=== PATIENT | male | born 1970 | race Caucasian/White ===

== ENCOUNTER 2020-02-27 00:17 | Observation (INO) | payer MEDICAID, OTHER ==
--- NOTE | 2020-02-27 00:33 | ERPHSYRPT ---
- History of Present Illness Source: patient Exam Limitations: no limitations Hx Tetanus, Diphtheria Vaccination/Date Given: No Hx Influenza Vaccination/Date Given: No Hx Pneumococcal Vaccination/Date Given: No <MU TAN - Last Filed: 02/27/20 02:44> <DESHAWN BHAKTA - Last Filed: 02/27/20 10:44> - History of Present Illness Time Seen by Provider: 02/27/20 00:32 Physician History: About 150 minutes ago at his daughter's residence pt started "flopping around" and was eventually brought to [facility] ER for evaluation. Pt's daughter stated he told her he used bath salts tonight. Pt has an appointment with Dr. Hand at 10 AM today and afterwards possible admission to [facility] in [place], [place], if they have a bed available today. Pt.s daughter denies pt having any vomiting or diarrhea tonight. (MU TAN) Allergies/Adverse Reactions: No Known Drug Allergies Allergy (Unverified 03/20/14 10:13) Home Medications: Mirtazapine 02/27/20 [History] Quetiapine Fumarate 02/27/20 [History] - Review of Systems All Other Systems: Unable due to condition (Altered Mental Status) <MU TAN - Last Filed: 02/27/20 02:44> - Past Medical History Pertinent Past Medical History: Yes Neurological History: No Pertinent History ENT History: No Pertinent History Cardiac History: No Pertinent History Respiratory History: No Pertinent History Endocrine Medical History: No Pertinent History Musculoskeletal History: No Pertinent History GI Medical History: No Pertinent History History: No Pertinent History Psycho-Social History: Other (as noted substance abuse) Male Reproductive Disorders: No Pertinent History Other Medical History: SLEEP DISORDER - Past Surgical History Past Surgical History: No Other Surgical History: unknown, pt unable to answer - Social History Smoking Status: Current every day smoker How long have you smoked: 15 Exposure to second hand smoke: No Alcohol Use: Chronic Drug Use: none, methamphetamines Patient Lives Alone: No Significant Family History: no pertinent family hx <MU TAN - Last Filed: 02/27/20 02:44> - Physical Exam General Appearance: anxiety Eye Exam: bilateral eye: PERRL Ears, Nose, Throat Exam: moist mucous membranes Neck Exam: normal inspection Respiratory: lungs clear Cardiovascular: normal heart sounds Gastrointestinal: normal bowel sounds Back Exam: normal inspection Extremity Exam: No pedal edema Peripheral Pulses: dorsalis-pedis (R): 2+, dorsalis-pedis (L): 2+ 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, 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, 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 Motor/Sensory: no motor deficit Skin Exam: warm, dry SpO2 Interpretation: normal SpO2: 98 O2 Delivery: Room Air <MU TAN - Last Filed: 02/27/20 02:44> - Nursing Vital Signs Nursing Vital Signs: Initial Vital Signs Temperature 96.7 F 02/27/20 00:19 Pulse Rate 127 H 02/27/20 00:19 Respiratory Rate 20 02/27/20 00:19 Blood Pressure 106/83 02/27/20 00:19 O2 Sat by Pulse Oximetry 98 02/27/20 00:19 Pain Scale Pain Intensity 0 Ordered Tests: Active Orders 24 hr Category Date Time Status Cath for Specimen-Straight STAT Care 02/27/20 00:34 Active CHEST 1 VIEW (PORTABLE) Stat Exams 02/27/20 04:03 Ordered HEAD WITHOUT CONTRAST [CT] Stat Exams 02/27/20 04:01 Ordered ACETAMINOPHEN Stat Lab 02/27/20 00:37 Completed BMP Stat Lab 02/27/20 04:20 Completed BMP Urgent Lab 02/27/20 08:25 Completed CBC W DIFF Stat Lab 02/27/20 00:37 Completed CMP Stat Lab 02/27/20 00:37 Completed CULTURE,URINE Stat Lab 02/27/20 00:37 Received ETHYL ALCOHOL Stat Lab 02/27/20 00:37 Completed ETHYL ALCOHOL Stat Lab 02/27/20 04:20 Completed MAGNESIUM Stat Lab 02/27/20 04:20 Completed Manual Differential NC Stat Lab 02/27/20 00:37 Completed SALICYLATE Stat Lab 02/27/20 00:37 Completed TROPONIN Q3H Lab 02/27/20 04:20 Completed TROPONIN Q3H Lab 02/27/20 08:25 Completed TROPONIN Q3H Lab 02/27/20 10:15 Ordered TROPONIN Q3H Lab 02/27/20 13:15 Ordered TROPONIN Q3H Lab 02/27/20 16:15 Ordered UA W/RFX UR CULTURE Stat Lab 02/27/20 00:37 Completed Urine Triage Profile Stat Lab 02/27/20 00:37 Completed Transfer Order Routine Transfer 02/27/20 Ordered Medication Summary Generic Name Dose Route Start Last Admin Trade Name Freq PRN Reason Stop Dose Admin Midazolam HCl 50 mg/ Sodium 250 mls @ 20 mls/hr 02/27/20 08:16 02/27/20 09:55 Chloride IV 03/28/20 08:15 8 mg/hr .[id number] PRN 40 mls/hr SEDATION Titration Protocol 4 MG/HR Sodium Chloride 1,000 mls @ 150 mls/hr 02/27/20 10:15 02/27/20 10:11 Sodium Chloride 0.9% 1000 Ml IV 03/28/20 10:14 150 mls/hr .[id number] LINDSEY Administration Haloperidol Lactate 5 mg/ 51 mls @ 100 mls/hr 02/27/20 10:22 02/27/20 10:40 Sodium Chloride IV 02/27/20 10:52 100 mls/hr STAT ONE Administration Discontinued Medications Generic Name Dose Route Start Last Admin Trade Name Juan PRN Reason Stop Dose Admin Chlorpromazine HCl 50 mg 02/27/20 00:45 02/27/20 00:38 Thorazine 50 Mg IM 02/27/20 00:46 50 mg ONCE ONE Administration Chlorpromazine HCl Confirm 02/27/20 00:34 Thorazine 50 Mg Administered 02/27/20 00:35 Dose 50 mg .ROUTE .STK-MED ONE Chlorpromazine HCl 50 mg 02/27/20 01:41 02/27/20 01:44 Thorazine 50 Mg IM 02/27/20 01:42 50 mg ONCE ONE Administration Chlorpromazine HCl Confirm 02/27/20 01:42 Thorazine 50 Mg Administered 02/27/20 01:43 Dose 50 mg .ROUTE .STK-MED ONE Sodium Chloride 1,000 mls @ 999 mls/hr 02/27/20 07:13 02/27/20 08:36 Sodium Chloride 0.9% 1000 Ml IV 02/27/20 08:13 Infused .Q1H1M STA Infusion Sodium Chloride Confirm 02/27/20 07:13 Sodium Chloride 0.9% 1000 Ml Administered 02/27/20 07:14 Dose 1,000 mls @ ud .ROUTE .STK-MED ONE Haloperidol Lactate 5 mg/ 51 mls @ 100 mls/hr 02/27/20 07:32 02/27/20 07:42 Sodium Chloride IV 02/27/20 08:02 100 mls/hr STAT ONE Administration Lorazepam 2 mg 02/27/20 00:53 02/27/20 01:09 Ativan 2 Mg/1 Ml Vial IV 02/27/20 00:54 2 mg STAT ONE Administration Lorazepam Confirm 02/27/20 01:07 Ativan 2 Mg/1 Ml Vial Administered 02/27/20 01:08 Dose 2 mg .ROUTE .STK-MED ONE Lorazepam 2 mg 02/27/20 04:00 02/27/20 04:14 Ativan 2 Mg/1 Ml Vial IV 02/27/20 04:01 2 mg STAT ONE Administration Lorazepam Confirm 02/27/20 04:11 Ativan 2 Mg/1 Ml Vial Administered 02/27/20 04:12 Dose 2 mg .ROUTE .STK-MED ONE Lorazepam 2 mg 02/27/20 07:11 02/27/20 07:14 Ativan 2 Mg/1 Ml Vial IV 02/27/20 07:12 2 mg STAT ONE Administration Lorazepam Confirm 02/27/20 07:12 Ativan 2 Mg/1 Ml Vial Administered 02/27/20 07:13 Dose 2 mg .ROUTE .STK-MED ONE Lorazepam 2 mg 02/27/20 07:59 02/27/20 08:03 Ativan 2 Mg/1 Ml Vial IV 02/27/20 08:00 2 mg STAT ONE Administration Lorazepam Confirm 02/27/20 08:00 Ativan 2 Mg/1 Ml Vial Administered 02/27/20 08:01 Dose 2 mg .ROUTE .STK-MED ONE Lab/Rad Data: Laboratory Result Diagrams 02/27/20 00:37 02/27/20 08:25 Laboratory Results 02/27/20 02/27/20 02/27/20 Range/Units 08:25 04:20 04:20 WBC (4.0-10.5) K/mm3 RBC (4.1-5.6) M/mm3 Hgb (12.5-18.0) gm/dl Hct (42-50) % MCV (78-100) fl MCH (26-32) pg MCHC (32-36) g/dl RDW (11.5-14.0) % Plt Count (150-450) K/mm3 MPV (7.5-11.0) fl Absolute Granulocytes (1.4-6.9) Segmented Neutrophils (36.-66.) % Lymphocytes (Manual) (24-44) % Monocytes (Manual) (0.0-12.0) % Eosinophils (Manual) (0.00-3.0) % Platelet Estimate (NORMAL) RBC Morphology Sodium 142 143 (137-145) mmol/L Potassium 3.9 3.4 L (3.5-5.1) mmol/L Chloride 114 H 109 H (98-107) mmol/L Carbon Dioxide 22 23 (22-30) mmol/L Anion Gap 9.9 15.1 H (5-15) MEQ/L BUN 10 8 L (9-20) mg/dL Creatinine 0.79 0.86 (0.66-1.25) mg/dL Estimated GFR > 60.0 > 60.0 ML/MIN Glucose 118 H 140 H (74-106) mg/dL Calcium 8.6 9.3 (8.4-10.2) mg/dL Magnesium 2.1 (1.6-2.3) mg/dL Total Bilirubin (0.2-1.3) mg/dL AST (17-59) U/L ALT (0-50) U/L Alkaline Phosphatase (38-126) U/L Troponin I 0.017 < 0.012 (0.000-0.034) ng/mL Serum Total Protein (6.3-8.2) g/dL Albumin (3.5-5.0) g/dL Urine Color (YELLOW) Urine Appearance (CLEAR) Urine pH (5-6) Ur Specific Edmonds (1.005-1.025) Urine Protein (Negative) Urine Ketones (NEGATIVE) Urine Blood (0-5) Ashwin/ul Urine Nitrite (NEGATIVE) Urine Bilirubin (NEGATIVE) Urine Urobilinogen (0-1) mg/dL Ur Leukocyte Esterase (NEGATIVE) Urine WBC (Auto) (0-5) /HPF Urine RBC (Auto) (0-2) /HPF U Epithel Cells (Auto) (FEW) /HPF Urine Bacteria (Auto) (NEGATIVE) /HPF Urine Culture Reflexed (NO) Urine Glucose (NEGATIVE) mg/dL Salicylates (2-20) mg/dL Urine Opiates Level (NEGATIVE) Ur Methadone (NEGATIVE) Acetaminophen (10-30) ug/ml Urine Barbiturates (NEGATIVE) Ur Phencyclidine (PCP) (NEGATIVE) Urine Amphetamine (NEGATIVE) U Benzodiazepine Level (NEGATIVE) Urine Cocaine (NEGATIVE) Urine Marijuana (THC) (NEGATIVE) Ethyl Alcohol 69 H (0-10) mg/dL 02/27/20 02/27/20 02/27/20 Range/Units 00:37 00:37 00:37 WBC 12.4 H (4.0-10.5) K/mm3 RBC 5.58 (4.1-5.6) M/mm3 Hgb 16.3 (12.5-18.0) gm/dl Hct 48.5 (42-50) % MCV 86.9 (78-100) fl MCH 29.2 (26-32) pg MCHC 33.6 (32-36) g/dl RDW 13.0 (11.5-14.0) % Plt Count 401 (150-450) K/mm3 MPV 9.4 (7.5-11.0) fl Absolute Granulocytes 5.76 (1.4-6.9) Segmented Neutrophils 54 (36.-66.) % Lymphocytes (Manual) 38 (24-44) % Monocytes (Manual) 7 (0.0-12.0) % Eosinophils (Manual) 1 (0.00-3.0) % Platelet Estimate NORMAL (NORMAL) RBC Morphology NORMAL Sodium 141 (137-145) mmol/L Potassium 3.4 L (3.5-5.1) mmol/L Chloride 109 H (98-107) mmol/L Carbon Dioxide 23 (22-30) mmol/L Anion Gap 13.2 (5-15) MEQ/L BUN 6 L (9-20) mg/dL Creatinine 0.85 (0.66-1.25) mg/dL Estimated GFR > 60.0 ML/MIN Glucose 122 H (74-106) mg/dL Calcium 9.2 (8.4-10.2) mg/dL Magnesium (1.6-2.3) mg/dL Total Bilirubin 0.30 (0.2-1.3) mg/dL AST 54 (17-59) U/L ALT 73 H (0-50) U/L Alkaline Phosphatase 85 (38-126) U/L Troponin I (0.000-0.034) ng/mL Serum Total Protein 7.9 (6.3-8.2) g/dL Albumin 4.5 (3.5-5.0) g/dL Urine Color (YELLOW) Urine Appearance (CLEAR) Urine pH (5-6) Ur Specific Edmonds (1.005-1.025) Urine Protein (Negative) Urine Ketones (NEGATIVE) Urine Blood (0-5) Ashwin/ul Urine Nitrite (NEGATIVE) Urine Bilirubin (NEGATIVE) Urine Urobilinogen (0-1) mg/dL Ur Leukocyte Esterase (NEGATIVE) Urine WBC (Auto) (0-5) /HPF Urine RBC (Auto) (0-2) /HPF U Epithel Cells (Auto) (FEW) /HPF Urine Bacteria (Auto) (NEGATIVE) /HPF Urine Culture Reflexed (NO) Urine Glucose (NEGATIVE) mg/dL Salicylates < 1.0 L (2-20) mg/dL Urine Opiates Level NEGATIVE (NEGATIVE) Ur Methadone NEGATIVE (NEGATIVE) Acetaminophen < 10 L (10-30) ug/ml Urine Barbiturates NEGATIVE (NEGATIVE) Ur Phencyclidine (PCP) NEGATIVE (NEGATIVE) Urine Amphetamine POSITIVE (NEGATIVE) U Benzodiazepine Level NEGATIVE (NEGATIVE) Urine Cocaine NEGATIVE (NEGATIVE) Urine Marijuana (THC) NEGATIVE (NEGATIVE) Ethyl Alcohol 157 H (0-10) mg/dL 02/26/ Range/Units 00:37 WBC (4.0-10.5) K/mm3 RBC (4.1-5.6) M/mm3 Hgb (12.5-18.0) gm/dl Hct (42-50) % MCV (78-100) fl MCH (26-32) pg MCHC (32-36) g/dl RDW (11.5-14.0) % Plt Count (150-450) K/mm3 MPV (7.5-11.0) fl Absolute Granulocytes (1.4-6.9) Segmented Neutrophils (36.-66.) % Lymphocytes (Manual) (24-44) % Monocytes (Manual) (0.0-12.0) % Eosinophils (Manual) (0.00-3.0) % Platelet Estimate (NORMAL) RBC Morphology Sodium (137-145) mmol/L Potassium (3.5-5.1) mmol/L Chloride (98-107) mmol/L Carbon Dioxide (22-30) mmol/L Anion Gap (5-15) MEQ/L BUN (9-20) mg/dL Creatinine (0.66-1.25) mg/dL Estimated GFR ML/MIN Glucose (74-106) mg/dL Calcium (8.4-10.2) mg/dL Magnesium (1.6-2.3) mg/dL Total Bilirubin (0.2-1.3) mg/dL AST (17-59) U/L ALT (0-50) U/L Alkaline Phosphatase (38-126) U/L Troponin I (0.000-0.034) ng/mL Serum Total Protein (6.3-8.2) g/dL Albumin (3.5-5.0) g/dL Urine Color YELLOW (YELLOW) Urine Appearance CLEAR (CLEAR) Urine pH 7.0 (5-6) Ur Specific Edmonds 1.005 (1.005-1.025) Urine Protein NEGATIVE (Negative) Urine Ketones NEGATIVE (NEGATIVE) Urine Blood NEGATIVE (0-5) Ashwin/ul Urine Nitrite NEGATIVE (NEGATIVE) Urine Bilirubin NEGATIVE (NEGATIVE) Urine Urobilinogen NEGATIVE (0-1) mg/dL Ur Leukocyte Esterase NEGATIVE (NEGATIVE) Urine WBC (Auto) NONE (0-5) /HPF Urine RBC (Auto) NONE (0-2) /HPF U Epithel Cells (Auto) NONE (FEW) /HPF Urine Bacteria (Auto) NONE (NEGATIVE) /HPF Urine Culture Reflexed ORDERED SEPARATELY (NO) Urine Glucose NEGATIVE (NEGATIVE) mg/dL Salicylates (2-20) mg/dL Urine Opiates Level (NEGATIVE) Ur Methadone (NEGATIVE) Acetaminophen (10-30) ug/ml Urine Barbiturates (NEGATIVE) Ur Phencyclidine (PCP) (NEGATIVE) Urine Amphetamine (NEGATIVE) U Benzodiazepine Level (NEGATIVE) Urine Cocaine (NEGATIVE) Urine Marijuana (THC) (NEGATIVE) Ethyl Alcohol (0-10) mg/dL - Progress Progress: improved, re-examined Counseled pt/family regarding: lab results, diagnosis <DESHAWN BHAKTA - Last Filed: 02/27/20 10:44> - Progress Progress Note: 02/27/20 07:50 Medical decision making: I accepted this patient at the time of shift change from Dr. Tan. Patient has been here approximately 6-1/2 hours prior to my arrival. There were no IV fluids running. Patient continues to have agitation on my initial examination of him. Patient will need admission into hospital and medical clearance prior to discharge from the emergency department. We will attempt to find a inpatient psychiatric facility for him. He may need intensive care unit observation in this facility. At this point, I will give patient another dose of Ativan and start a Haldol drip. I discussed treatment options with pharmacy and we opted for the Haldol drip first. Patient may need to be on a Versed drip and possible even a propofol drip. We will obtain an emergency skilled nursing at the appropriate time. We will continue his restraints. We will start him on IV fluids. 02/27/20 10:31 Medical decision making update: Patient's agitation is slowly improving. I spoke with Dr. Hand. I reviewed the patient history, condition, laboratory results. He is aware that the patient is on a Versed drip and has required Haldol, Ativan and 4 extremity restraints. Patient is not medically stable to be transferred to an inpatient psychiatric facility at this point in time. Therefore he will be admitted to intensive care unit. Dr. Hand accepts him for admission 02/27/20 10:33 The patient's agitation is slowly resolving/improving. We will make another attempt to perform a CAT scan of his head in the emergency department. I am convinced his agitation is secondary to bath salts intoxication. So, if we cannot obtain the CAT scan of his head in the emergency department, he will have 1 performed once he is in the intensive care unit. (DESHAWN BHAKTA) <MU TAN - Last Filed: 02/27/20 02:44> - Departure Departure Disposition: In-patient Admission Critical Care Time: Yes Critical Care Time(excluding separately billable procedures): Critical 75-104 mins <DESHAWN BHAKTA - Last Filed: 02/27/20 10:44> - Departure Clinical Impression: Altered mental status, Alcohol intoxication, Bath salt overdose, UDS + for amphetamines Condition: Fair Referrals: AUDELIA STARK [Primary Care Provider] -
[2020-02-27] MEDS ORDERED: THORAZINE 50 MG ONE ×2 (00:34→01:42)
[2020-02-27] MEDS ORDERED: THORAZINE 50 MG IM ONE ×2 (00:45→01:41)
[2020-02-27 00:47] LABS: Absolute Neutrophil Ct (ANC) 5.76 (1.4-6.9); Hematocrit 48.5 % (42-50); Hemoglobin 16.3 gm/dl (12.5-18.0); Mean Cell Volume 86.9 fl (78-100); Mean Corpuscular Hemoglobin 29.2 pg (26-32); Mean Corpuscular Hgb Concent. 33.6 g/dl (32-36); Mean Platelet Volume 9.4 fl (7.5-11.0); Platelet Count 401 K/mm3 (150-450); Red Blood Count 5.58 M/mm3 (4.1-5.6); White Blood Count 12.4 K/mm3 (4.0-10.5)
[2020-02-27] MEDS ORDERED: Ativan 2 MG/1 ML VIAL IV ONE ×4 (00:53→07:59)
[2020-02-27 00:56] LABS: Appearance CLEAR (CLEAR); Bilirubin NEGATIVE (NEGATIVE); Blood NEGATIVE Ery/ul (0-5); Glucose NEGATIVE (NEGATIVE); Ketones NEGATIVE (NEGATIVE); Leukocyte Esterase NEGATIVE (NEGATIVE); Nitrite NEGATIVE (NEGATIVE); Protein,Urine Dip NEGATIVE (Negative); Specific Gravity 1.005 (1.005-1.025); Urobilinogen NEGATIVE mg/dL (0-1)
[2020-02-27 00:57] LABS: ALBUMIN 4.5 g/dL (3.5-5.0); ALKALINE PHOSPHATASE 85 U/L (38-126); ANION GAP 13.2 MEQ/L (5-15); BLOOD UREA NITROGEN 6 mg/dL (9-20); CHLORIDE 109 mmol/L (98-107); Calcium 9.2 mg/dL (8.4-10.2); Carbon Dioxide 23 mmol/L (22-30); Creatinine 1 0.85 mg/dL (0.66-1.25); EST GLOMERULAR FILTRATION RATE > 60.0 ML/MIN; ETHYL ALCOHOL 157 mg/dL (0-10); Glucose 122 mg/dL (74-106); Potassium 3.4 mmol/L (3.5-5.1); SGOT/AST 54 U/L (17-59); SGPT/ALT 73 U/L (0-50); SODIUM 141 mmol/L (137-145); Total Protein 7.9 g/dL (6.3-8.2)
[2020-02-27 01:04] LABS: Amphetamine,Urine POSITIVE (NEGATIVE); Barbiturate,Urine NEGATIVE (NEGATIVE); Benzodiazepine,Urine NEGATIVE (NEGATIVE); Cocaine,Urine NEGATIVE (NEGATIVE); Methadone,Urine NEGATIVE (NEGATIVE); Opiate,Urine NEGATIVE (NEGATIVE); PCP,Urine NEGATIVE (NEGATIVE); THC,Urine NEGATIVE (NEGATIVE)
[2020-02-27] MEDS ORDERED: Ativan 2 MG/1 ML VIAL ONE ×4 (01:07→08:00)
[2020-02-27 01:29] LABS: ACETAMINOPHEN < 10 ug/ml (10-30); SALICYLATE < 1.0 mg/dL (2-20)
[2020-02-27 04:09] LABS: Eosinophil 1 % (0.00-3.0); Lymphocytes 38 % (24-44); Monocyte 7 % (0.0-12.0); Neutrophils 54 % (36.-66.); Platelet Estimate NORMAL (NORMAL); Total Cells Counted 100
[2020-02-27 04:50] LABS: ANION GAP 15.1 MEQ/L (5-15); BLOOD UREA NITROGEN 8 mg/dL (9-20); CHLORIDE 109 mmol/L (98-107); Calcium 9.3 mg/dL (8.4-10.2); Carbon Dioxide 23 mmol/L (22-30); Creatinine 1 0.86 mg/dL (0.66-1.25); EST GLOMERULAR FILTRATION RATE > 60.0 ML/MIN; ETHYL ALCOHOL 69 mg/dL (0-10); Glucose 140 mg/dL (74-106); MAGNESIUM 2.1 mg/dL (1.6-2.3); Potassium 3.4 mmol/L (3.5-5.1); SODIUM 143 mmol/L (137-145)
[2020-02-27] MEDS ORDERED: Sodium Chloride 0.9% 1000 ML 1,000 ML ONE (07:13)
[2020-02-27] MEDS ORDERED: Sodium Chloride 0.9% 1000 ML 1,000 ML IV STA (07:13)
[2020-02-27] MEDS ORDERED: SODIUM CHLORIDE 0.9% IV ONE ×2 (07:32→10:22)
[2020-02-27] MEDS ORDERED: HALDOL IV ONE ×2 (07:32→10:22)
[2020-02-27] MEDS: Versed 50 MG/ 10 Ml MDV*** 50 MG in Sodium Chloride 0.9% 250 ML 240 ML IV PRN ×2 (08:38→15:45)
[2020-02-27 08:49] LABS: BLOOD UREA NITROGEN 10 mg/dL (9-20); CHLORIDE 114 mmol/L (98-107); Calcium 8.6 mg/dL (8.4-10.2); Carbon Dioxide 22 mmol/L (22-30); Creatinine 1 0.79 mg/dL (0.66-1.25); EST GLOMERULAR FILTRATION RATE > 60.0 ML/MIN; Glucose 118 mg/dL (74-106); Potassium 3.9 mmol/L (3.5-5.1); SODIUM 142 mmol/L (137-145)
[2020-02-27 08:51] LABS: ANION GAP 9.9 MEQ/L (5-15)
[2020-02-27 08:56] LABS: TROPONIN 0.017 ng/mL (0.000-0.034)
[2020-02-27] MEDS ORDERED: Sodium Chloride 0.9% 1000 ML 1,000 ML IV SCH ×2 (10:15→15:58)
[2020-02-27] MEDS ORDERED: Erythromycin 1 GM ONE (11:25)
[2020-02-27] MEDS ORDERED: Erythromycin 3.5 GM OPHTH. OP ONE (11:25)
[2020-02-27] MEDS ORDERED: Erythromycin 1 GM OP STA (11:26)
--- NOTE | 2020-02-27 13:32 | XRAY ---
Indication: Altered mental status. Multiple contiguous axial images obtained through the head without contrast. Comparison: March 20, 2014. Normal appearing brain parenchyma, ventricles, and bony calvarium. There is now moderate mucosal thickening of both ethmoid and lesser degree left maxillary sinus without fluid leveling. Mastoid air cells are clear. Impression: New paranasal sinus disease. Remaining CT head without contrast exam is normal.
--- NOTE | 2020-02-27 13:38 | XRAY ---
Indication: Altered mental status. Comparison: June 21, 2007. Portable chest again demonstrates normal heart, lungs, and bony thorax with a few incidental tiny calcified granulomas.
[2020-02-27 14:16] VITALS: PULSE 95
[2020-02-27 15:08] VITALS: BP 138/82; O2SAT 97
[2020-02-27] MEDS ORDERED: FEVERALL 650 MG PR PRN (15:58)
[2020-02-27] MEDS ORDERED: Zofran 4 MG/2 ML VIAL IV PRN (15:58)
[2020-02-27 16:07] LABS: A-aADO2 557; ABG HEMOGLOBIN 14.9; ABG POTASSIUM 3.6 (3.5-5.1); ABG SITE LEFT BRACHIAL; ARTERIAL BLD GAS O2 SATURATION 99.1 % (95-100); ARTERIAL BLOOD GAS BASE EXCESS -0.2 (-2.0-2.0); ARTERIAL BLOOD GAS FIO2 100 %; ARTERIAL BLOOD GAS PCO2 41 mmHg (35-45); ARTERIAL BLOOD GAS PO2 105 mmHg (75-100); ARTERIAL BLOOD GAS pH 7.39 (7.35-7.45); CARBOXYHEMOGLOBIN 1.3 % THgb (0.0-6.9); HCO3- 24.8 (22-28); Methhemoglobin 0.8 % (1.4-1.5); paO2 pAO1 0.16
[2020-02-27] MEDS ORDERED: Zemuron 100 MG/10 ML IV ONE (17:00)
[2020-02-27 17:52] LABS: ANION GAP 6.1 MEQ/L (5-15); BLOOD UREA NITROGEN 9 mg/dL (9-20); CHLORIDE 113 mmol/L (98-107); Calcium 8.3 mg/dL (8.4-10.2); Carbon Dioxide 25 mmol/L (22-30); Creatinine 1 0.69 mg/dL (0.66-1.25); EST GLOMERULAR FILTRATION RATE > 60.0 ML/MIN; Glucose 136 mg/dL (74-106); Potassium 3.7 mmol/L (3.5-5.1); SODIUM 140 mmol/L (137-145)
[2020-02-27 17:53] LABS: TROPONIN < 0.012 ng/mL (0.000-0.034)
--- NOTE | 2020-02-27 18:56 | XRAY ---
Indication: Endotracheal tube and NG tube placement. Comparison: Taken earlier in the day. Portable chest demonstrates new endotracheal tube tip 6 cm above kiko and new NG tube traversing chest with tip presumed in stomach. Remaining chest unchanged. No new/acute cardiopulmonary abnormalities.
[2020-02-28] MEDS ORDERED: Pepcid 20 MG VIAL IV SCH (10:00)
--- NOTE | 2020-02-28 12:19 | PCM.SSS ---
History of Present Illness - Chief Complaint Chief Complaint: Bath salts intoxication History of Present Illness: is a 49 year old male.About 150 minutes ago at his daughter's residence pt started "flopping around" and was eventually brought to [facility] ER for evaluation. Pt's daughter stated he told her he used bath salts tonight. Pt has an appointment with Dr. Driscoll at 10 AM today and afterwards possible admission to [facility] in [facility] [place], if they have a bed a vailable today. Pt.s daughter denies pt having any vomiting or diarrhea tonight. - Review of Systems All Other Systems: Unable due to condition Medications & Allergies Home Medications: Home Medication List Mirtazapine 02/27/20 [History] Quetiapine Fumarate 02/27/20 [History] Allergies/Adverse Reactions: Allergies Allergy/AdvReac Type Severity Reaction Status Date / Time No Known Drug Allergies Allergy Unverified 03/20/14 10:13 - Past Medical History Past Medical History: Yes Neurological History: No Pertinent History ENT History: No Pertinent History Cardiac History: No Pertinent History Respiratory History: No Pertinent History Endocrine Medical History: No Pertinent History Musculoskelatal History: No Pertinent History GI Medical History: No Pertinent History History: No Pertinent History Pyscho-Social History: Other Male Reproductive Disorders: No Pertinent History Comment: SLEEP DISORDER. Multi-drug abuse - Past Surgical History Past Surgical History: No Other Surgical History: unknown, pt unable to answer - Social History Smoking Status: Unknown if ever smoked How long have you smoked: 15 Exposure to second hand smoke: No Alcohol: Heavy Drug Use: bath salts, methamphetamines Significant Family History: no pertinent family hx - Physical Exam Vital Signs: Vital Signs - 24 hr Temp Pulse Resp BP Pulse Ox 02/27/20 17:11 97.4 F 95 H 26 H 138/82 97 02/27/20 15:07 95 H 26 H 138/82 97 02/27/20 14:06 95 H 27 H 140/80 100 02/27/20 13:06 102 H 33 H 136/76 99 General Appearance: moderate distress Neurologic Exam: disoriented, confusion, agitation Eye Exam: post op pupil defect (L), post op pupil defect (R) Ears, Nose, Throat Exam: normal ENT inspection Neck Exam: normal inspection Respiratory Exam: normal breath sounds Cardiovascular Exam: tachycardia Gastrointestinal/Abdomen Exam: soft Skin Exam: dry Results - Labs Lab/Micro Results: Lab Results-Last 24 Hours 02/27/20 02/27/20 02/27/20 Range/Units 15:11 16:04 16:51 Puncture Site LEFT BRACHIAL pCO2 41 (35-45) mmHg pO2 105 H (75-100) mmHg Base Excess -0.2 (-2.0-2.0) O2 Saturation 97.0 (94-100) g/dF ABG pH 7.39 (7.35-7.45) ABG HCO3 24.8 (22-28) ABG O2 Sat (Measured) 99.1 (95-100) % Beni Test NOT APPLICABLE A-a Gradient 557 a/A Ratio 0.16 Hemoglobin 14.9 Carboxyhemoglobin 1.3 (0.0-6.9) % THgb Methemoglobin 0.8 L (1.4-1.5) % Potassium 3.6 3.7 (3.5-5.1) Temperature 37.0 C POC O2 Flow Rate 100 % Sodium 140 (137-145) mmol/L Chloride 113 H (98-107) mmol/L Carbon Dioxide 25 (22-30) mmol/L Anion Gap 6.1 (5-15) MEQ/L BUN 9 (9-20) mg/dL Creatinine 0.69 (0.66-1.25) mg/dL Estimated GFR > 60.0 ML/MIN Glucose 136 H (74-106) mg/dL Calcium 8.3 L (8.4-10.2) mg/dL Troponin I < 0.012 < 0.012 (0.000-0.034) ng/mL Microbiology 02/27/20 00:37 Urine Culture - Final Catherized NO GROWTH - Radiology Impressions Radiology Exams & Impressions: Radiology Procedures Category Date Time Status CHEST 1 VIEW (PORTABLE) Stat Exams 02/27/20 04:03 Completed CHEST 1 VIEW (PORTABLE) Stat Exams 02/27/20 17:02 Completed HEAD WITHOUT CONTRAST [CT] Stat Exams 02/27/20 04:[address]/HEAD WITHOUT CONTRAST Indication: Altered mental status. Multiple contiguous axial images obtained through the head without contrast. Comparison: March 20, 2014. Normal appearing brain parenchyma, ventricles, and bony calvarium. There is now moderate mucosal thickening of both ethmoid and lesser degree left maxillary sinus without fluid leveling. Mastoid air cells are clear. Impression: New paranasal sinus disease. Remaining CT head without contrast exam is normal. - Other Procedures and Tests Respiratory Therapy 02/27/20 17:15 Intubation [Ventilator Management] STAT Assessment/Plan (1) Status epilepticus, generalized convulsive Status: Acute Code(s): G40.901 - EPILEPSY, UNSP, NOT INTRACTABLE, WITH STATUS EPILEPTICUS (2) Respiratory arrest Status: Acute Code(s): R09.2 - RESPIRATORY ARREST (3) Bath salt overdose Status: Acute Qualifiers: Encounter type: initial encounter Code(s): T43.601A - POISONING BY UNSP PSYCHOSTIM, ACCIDENTAL, INIT Hospital Summary - Hospital Course Hospital Course: Chief Complaint Diagnosis Bath salts intoxication Allergies Allergy/AdvReac Type Severity Reaction Status Date / Time No Known Drug Allergies Allergy Unverified 03/20/14 10:13 Vital Signs (Last 24 hours) Temp Pulse Resp BP Pulse Ox 02/27/20 17:11 97.4 F 95 H 26 H 138/82 97 02/27/20 15:07 95 H 26 H 138/82 97 02/27/20 14:06 95 H 27 H 140/80 100 02/27/20 13:06 102 H 33 H 136/76 99 Home Medications Medication Instructions Recorded Confirmed Last Taken Type Mirtazapine 02/27/20 02/26/20 22:00 History Quetiapine Fumarate 02/27/20 02/26/20 22:00 History Current Medications Discontinued Medications Generic Name Dose Route Start Last Admin Trade Name Freq PRN Reason Stop Dose Admin Acetaminophen 650 mg 02/27/20 15:58 Feverall 650 Mg IN 03/28/20 15:57 Q4H PRN PRN PAIN AND/OR FEVER Chlorpromazine HCl 50 mg 02/27/20 00:45 02/27/20 00:38 Thorazine 50 Mg IM 02/27/20 00:46 50 mg ONCE ONE Administration Chlorpromazine HCl Confirm 02/27/20 00:34 Thorazine 50 Mg Administered 02/27/20 00:35 Dose 50 mg .ROUTE .STK-MED ONE Chlorpromazine HCl 50 mg 02/27/20 01:41 02/27/20 01:44 Thorazine 50 Mg IM 02/27/20 01:42 50 mg ONCE ONE Administration Chlorpromazine HCl Confirm 02/27/20 01:42 Thorazine 50 Mg Administered 02/27/20 01:43 Dose 50 mg .ROUTE .STK-MED ONE Erythromycin 3.5 gm 02/27/20 11:25 02/27/20 11:26 Erythromycin 3.5 Gm Ophth. OP 02/27/20 11:26 Not Given STAT ONE Erythromycin 1 gm 02/27/20 11:26 02/27/20 11:28 Erythromycin 1 Gm OP 02/27/20 11:27 1 gm STAT STA Administration Erythromycin Confirm 02/27/20 11:25 Erythromycin 1 Gm Administered 02/27/20 11:26 Dose 1 gm .ROUTE .STK-MED ONE Famotidine 40 mg 02/28/20 10:00 Pepcid 20 Mg Vial IV 03/29/20 09:59 DAILY LINDSEY Sodium Chloride 1,000 mls @ 999 mls/hr 02/27/20 07:13 02/27/20 08:36 Sodium Chloride 0.9% 1000 Ml IV 02/27/20 08:13 Infused .Q1H1M STA Infusion Sodium Chloride Confirm 02/27/20 07:13 Sodium Chloride 0.9% 1000 Ml Administered 02/27/20 07:14 Dose 1,000 mls @ ud .ROUTE .STK-MED ONE Haloperidol Lactate 5 mg/ 51 mls @ 100 mls/hr 02/27/20 07:32 02/27/20 07:42 Sodium Chloride IV 02/27/20 08:02 100 mls/hr STAT ONE Administration Midazolam HCl 50 mg/ Sodium 250 mls @ 20 mls/hr 02/27/20 08:16 02/27/20 15:45 Chloride IV 03/28/20 08:15 4 mg/hr .[id number] PRN 20 mls/hr SEDATION Administration Protocol 4 MG/HR Sodium Chloride 1,000 mls @ 150 mls/hr 02/27/20 10:15 02/27/20 10:11 Sodium Chloride 0.9% 1000 Ml IV 03/28/20 10:14 150 mls/hr .Q6H40M LINDSEY Administration Haloperidol Lactate 5 mg/ 51 mls @ 100 mls/hr 02/27/20 10:22 02/27/20 10:40 Sodium Chloride IV 02/27/20 10:52 100 mls/hr STAT ONE Administration Sodium Chloride 1,000 mls @ 150 mls/hr 02/27/20 15:58 02/27/20 16:34 Sodium Chloride 0.9% 1000 Ml IV 03/28/20 15:57 150 mls/hr .Q6H40M LINDSEY Administration Lorazepam 2 mg 02/27/20 00:53 02/27/20 01:09 Ativan 2 Mg/1 Ml Vial IV 02/27/20 00:54 2 mg STAT ONE Administration Lorazepam Confirm 02/27/20 01:07 Ativan 2 Mg/1 Ml Vial Administered 02/27/20 01:08 Dose 2 mg .ROUTE .STK-MED ONE Lorazepam 2 mg 02/27/20 04:00 02/27/20 04:14 Ativan 2 Mg/1 Ml Vial IV 02/27/20 04:01 2 mg STAT ONE Administration Lorazepam Confirm 02/27/20 04:11 Ativan 2 Mg/1 Ml Vial Administered 02/27/20 04:12 Dose 2 mg .ROUTE .STK-MED ONE Lorazepam 2 mg 02/27/20 07:11 02/27/20 07:14 Ativan 2 Mg/1 Ml Vial IV 02/27/20 07:12 2 mg STAT ONE Administration Lorazepam Confirm 02/27/20 07:12 Ativan 2 Mg/1 Ml Vial Administered 02/27/20 07:13 Dose 2 mg .ROUTE .STK-MED ONE Lorazepam 2 mg 02/27/20 07:59 02/27/20 08:03 Ativan 2 Mg/1 Ml Vial IV 02/27/20 08:00 2 mg STAT ONE Administration Lorazepam Confirm 02/27/20 08:00 Ativan 2 Mg/1 Ml Vial Administered 02/27/20 08:01 Dose 2 mg .ROUTE .STK-MED ONE Ondansetron HCl 4 mg 02/27/20 15:58 Zofran 4 Mg/2 Ml Vial IV 03/28/20 15:57 Q6H PRN PRN NAUSEA/VOMITING Rocuronium [place] 50 mg 02/27/20 17:00 02/27/20 16:59 Zemuron 100 Mg/10 Ml IV 02/27/20 17:01 50 mg NOW ONE Administration Intake & Output (Last 24 hours) 02/26/20 02/27/20 02/28/20 02/29/20 11:59 11:59 11:59 10:59 Weight 68.039 kg 68.039 kg Microbiology Results (Last 24 hours) 02/27/20 00:37 Catherized Urine Culture - Final NO GROWTH Laboratory Results (Last 24 hours) 02/27/20 02/27/20 02/27/20 16:51 16:04 15:11 Puncture Site LEFT BRACHIAL pCO2 41 pO2 105 H Base Excess -0.2 O2 Saturation 97.0 ABG pH 7.39 ABG HCO3 24.8 ABG O2 Sat (Measured) 99.1 Beni Test NOT APPLICABLE A-a Gradient 557 a/A Ratio 0.16 Hemoglobin 14.9 Carboxyhemoglobin 1.3 Methemoglobin 0.8 L Potassium 3.7 3.6 Temperature 37.0 POC O2 Flow Rate 100 Sodium 140 Chloride 113 H Carbon Dioxide 25 Anion Gap 6.1 BUN 9 Creatinine 0.69 Estimated GFR > 60.0 Glucose 136 H Calcium 8.3 L Troponin I < 0.012 < 0.012 Orders (Last 24 hours) Category Date Time Status Bedrest TOLERATED Activity 02/27/20 15:58 Active Admit as Inpatient ROUTINE Care 02/27/20 15:58 Active Catheter-[place] ROUTINE Care 02/27/20 15:58 Active IV Insertion STAT Care 02/27/20 11:19 Completed IV Insertion-2nd Peripheral STAT Care 02/27/20 11:19 Completed Infection Control Consult ROUTINE Cons 02/27/20 16:25 Active Magneto Electrician/Discharge Plan ROUTINE Cons 02/27/20 16:19 Active NPO Diet 02/27/20 15:59 Completed CHEST 1 VIEW (PORTABLE) Stat Exams 02/27/20 17:02 Completed ABG [ARTERIAL BLOOD GASES] Stat Lab 02/27/20 16:04 Completed BMP Urgent Lab 02/27/20 16:51 Completed TROPONIN Q3H Lab 02/27/20 11:20 Completed TROPONIN Q3H Lab 02/27/20 15:11 Completed TROPONIN Q3H Lab 02/27/20 16:51 Completed Acetaminophen 650 mg [Feverall 650 mg] Med 02/27/20 15:58 Discontinued 650 mg IN Q4H PRN PRN Erythromycin Base 1 gm [Erythromycin 1 GM] Med 02/27/20 11:25 Discontinued 1 gm .ROUTE .STK-MED ONE Erythromycin Base 1 gm [Erythromycin 1 GM] Med 02/27/20 11:26 Discontinued 1 gm OP STAT STA Erythromycin Base 3.5 gm [Erythromycin 3.5 GM OPHTH. Med 02/27/20 11:25 Discontinued ] 3.5 gm OP STAT ONE Famotidine 20 mg Vial [Pepcid 20 MG VIAL] Med 02/28/20 10:00 Di scontinued 40 mg IV DAILY NaCl 0.9% 1000 ml [Sodium Chloride 0.9% 1000 ML] 1,000 Med 02/27/20 15:58 Discontinued ml IV 150 mls/hr Ondansetron HCl 4 mg/2 ml [Zofran 4 MG/2 ML VIAL] Med 02/27/20 15:58 Discontinued 4 mg IV Q6H PRN PRN Rocuronium [place] 100 mg/10Ml [Zemuron 100 MG/10 ML] Med 02/27/20 17:00 Discontinued 50 mg IV NOW ONE Intubation [Ventilator Management] STAT RT 02/27/20 17:15 Active Pulse Oximetry ROUTINE RT 02/27/20 15:58 Active Standby STAT RT 02/27/20 17:20 Completed Patient Care Notes (Last 24 hours) 02/27/20 18:15 Nursing Note by René Davidson Notes from RSI: Rocuronium 50mg IV administered at 1659 (02/27/20). At this exact same time versed gtt increased to 8 mg/hr. V/S at this time are: HR of 134, 105/64, and 97% nonrebreather at 15L. Intubation time is 1700 with 7.5 ETT 23 cm at the lip. Auscultated confirmed at 1702. OG tube placed at 1704 with auscultation confirmation. Ventilator time is 1705. V/S at this time are: HR of 133, 186/117, and 97% on ventilator. Report [place] [facility] [place] spoke with nurse Rosa. Initialized on 02/27/20 18:15 - END OF NOTE 02/27/20 18:13 Nursing Note by Duhne,P Anibal Versed gtt increased back to 8 mg/hr at 1659 (02/27/20) prior to RSI. Initialized on 02/27/20 18:13 - END OF NOTE 02/27/20 17:16 Respiratory Note by Lizzy Tom DO TO DECLINE IN PT CONDITIONAND CONCERNS FOR AIR WAY PROTECTION PT WAS INTUBATED WITH 7.5 ET TUBE SECURED AND CXR TO FOLLOW FOR GOOD PLACEMENT CON FIRMED BY DR BHAKTA. PLACED ON VENT AWAITING TRANSFERE TO [facility]., NO COMPLICATIONS PARALYTIC AND SEDATION USED Initialized on 02/27/20 17:16 - END OF NOTE 02/27/20 15:57 Nursing Note by René Davidson gtt decreased to 4 mg/hr secondary to increased work of breathing and hypoxia. Unable to chart titration in JUN. Initialized on 02/27/20 15:57 - END OF NOTE Patient is transferred to [facility] for further management including Pulmonary and neurology services - Vitals & Intake/Output Vital Signs: Vital Signs Temperature 97.4 F 02/27/20 17:11 Pulse Rate 95 H 02/27/20 17:11 Respiratory Rate 26 H 02/27/20 17:11 Blood Pressure 138/82 02/27/20 17:11 O2 Sat by Pulse Oximetry 97 02/27/20 17:11 Intake & Output: Intake & Output 02/26/20 02/27/20 02/28/20 02/29/20 11:59 11:59 11:59 10:59 Weight 68.039 kg 68.039 kg - Lab Result Diagrams: 02/27/20 00:37 02/27/20 16:51 Lab Results-Last 24 Hrs: Lab Results-Last 24 Hours 02/27/20 02/27/20 02/27/20 Range/Units 15:11 16:04 16:51 Puncture Site LEFT BRACHIAL pCO2 41 (35-45) mmHg pO2 105 H (75-100) mmHg Base Excess -0.2 (-2.0-2.0) O2 Saturation 97.0 (94-100) g/dF ABG pH 7.39 (7.35-7.45) ABG HCO3 24.8 (22-28) ABG O2 Sat (Measured) 99.1 (95-100) % Beni Test NOT APPLICABLE A-a Gradient 557 a/A Ratio 0.16 Hemoglobin 14.9 Carboxyhemoglobin 1.3 (0.0-6.9) % THgb Methemoglobin 0.8 L (1.4-1.5) % Potassium 3.6 3.7 (3.5-5.1) Temperature 37.0 C POC O2 Flow Rate 100 % Sodium 140 (137-145) mmol/L Chloride 113 H (98-107) mmol/L Carbon Dioxide 25 (22-30) mmol/L Anion Gap 6.1 (5-15) MEQ/L BUN 9 (9-20) mg/dL Creatinine 0.69 (0.66-1.25) mg/dL Estimated GFR > 60.0 ML/MIN Glucose 136 H (74-106) mg/dL Calcium 8.3 L (8.4-10.2) mg/dL Troponin I < 0.012 < 0.012 (0.000-0.034) ng/mL Micro Results-Entire Visit: Microbiology 02/27/20 00:37 Urine Culture - Final Catherized NO GROWTH - Radiology Exams Ordered Rad Exams-Entire Visit: Radiology Procedures Category Date Time Status CHEST 1 VIEW (PORTABLE) Stat Exams 02/27/20 04:03 Completed CHEST 1 VIEW (PORTABLE) Stat Exams 02/27/20 17:02 Completed HEAD WITHOUT CONTRAST [CT] Stat Exams 02/27/20 04:01 Completed - Procedures and Test Procedures and Tests throughout Hospitalization: Therapy Orders & Screens 02/27/20 17:15 Intubation [Ventilator Management] STAT Comment: Diagnosis: Bath salts intoxication 02/27/20 17:20 Standby STAT Comment: Diagnosis: Bath salts intoxication - Discharge Discharge Date: 02/27/20 Disposition: DC TO [facility] Condition: Critical Prescriptions: No Action Quetiapine Fumarate Mirtazapine Follow up with: INDY DRISCOLL MD [ACTIVE STAFF] - 1 Week
== END 2020-02-27 17:45 | disposition home or self-care (01) ==
LOC: ED 00:17 → INTOOBSV 15:18 → ICU 15:18
PROVIDERS: ADMIT General Practice; ATTEND General Practice
DX: G40.901 Epilepsy, unspecified, not intractable, with status epilepticus (principal); R09.2 Respiratory arrest; T43.691A Poisoning by other psychostimulants, accidental (unintentional), initial encounter
CPT/HCPCS: 31500; 36000; 36415; 36600; 70450; 71045; 80048; 80053; 80307; 81001; 82375; 82803; 82947; 83735; 84484; 85025; 87086; 93268; 94002; 94799; 96360; 96372; 96374; 96376; 99285; 99291; 99292; G0378; P9612; J1630; J2060; J2250; J3230; A9270-GY; G0480

== ENCOUNTER 2021-04-06 13:30 | Emergency (ER) | payer OTHER ==
--- NOTE | 2021-04-06 14:02 | ERPHSYRPT ---
- History of Present Illness Time Seen by Provider: 04/06/21 13:31 Source: patient, EMS Exam Limitations: no limitations Patient Subjective Stated Complaint: Cough Triage Nursing Assessment: Patient ambulated back to ED per EMS and transferred to bed per self. Patient A+O X3. Patient's skin pink, warm and dry. Patient complains of productive cough for 2 days. Patient's parent's are both COVID positive and he has been helping out with them. Patient's lungs noted to have rhonchi throughout. Patient denies pain or discomfort. Physician History: 50-year-old male with history of tobacco abuse, drug abuse, chronic pain p resented to the ER with chief complaint of subjective feeling of fever chills with body aches, rectal dry cough, nasal congestion and decreased oral intake feeling fatigued tired with lack of energy. Patient is unvaccinated against COVID-19 and does have positive contact with known COVID-19. Patient reports occasional shortness of breath with coughing spells but does not seems to be short of breath at all during exam and saturating around 98% on room air. No abdominal pain nausea vomiting or diarrhea. Timing/Duration: day(s) (2), constant, gradual onset, worse Cough Quality/Degree: dry cough, productive cough Modifying Factors: Worsens With: coughing, exertion Associated Symptoms: fever, chills, chest pain/soreness, cough, dizziness, headache, lightheadedness, muscle aches, nasal congestion, nasal drainage, shortness of breath, sinus infection, sore throat Allergies/Adverse Reactions: No Known Drug Allergies Allergy (Verified 04/06/21 13:31) Hx Tetanus, Diphtheria Vaccination/Date Given: No Hx Influenza Vaccination/Date Given: No Hx Pneumococcal Vaccination/Date Given: No Immunizations Up to Date: Yes Travel Risk - International Travel Have you traveled outside of the country in past 3 weeks: No - Coronavirus Screening Are you exhibiting any of the following symptoms?: Yes Symptoms: Fever, Cough: New Onset, Shortness of Breath, Loss of Taste or Smell, Headaches/Body Aches/Fatigue Close contact with a COVID-19 positive Pt in past 14-21 Days: Yes - Vaccine Status Have you recieved a Covid-19 vaccination: No - Review of Systems Constitutional: Fever, Chills, Fatigue, Weakness Eyes: No Symptoms Ears, Nose, & Throat: Nose Congestion, Throat Pain Respiratory: Cough, Dyspnea, Wheezing Cardiac: No Symptoms Abdominal/Gastrointestinal: No Symptoms Genitourinary Symptoms: No Symptoms Musculoskeletal: Myalgias Skin: No Symptoms Neurological: Headache Psychological: Anxiety Endocrine: No Symptoms Hematologic/Lymphatic: No Symptoms Immunological/Allergic: No Symptoms - Past Medical History Pertinent Past Medical History: Yes Neurological History: No Pertinent History ENT History: No Pertinent History Cardiac History: No Pertinent History Respiratory History: No Pertinent History Endocrine Medical History: No Pertinent History Musculoskeletal History: No Pertinent History GI Medical History: No Pertinent History History: No Pertinent History Psycho-Social History: Other Male Reproductive Disorders: No Pertinent History Other Medical History: SLEEP DISORDER. Multi-drug abuse. schizophrenia - Past Surgical History Past Surgical History: No Other Surgical History: unknown, pt unable to answer - Social History Smoking Status: Current every day smoker How long have you smoked: years Exposure to second hand smoke: No Alcohol Use: Chronic Drug Use: methamphetamines Patient Lives Alone: Yes Significant Family History: no pertinent family hx - Nursing Vital Signs Nursing Vital Signs: Initial Vital Signs Temperature 98.2 F 04/06/21 13:34 Pulse Rate 85 04/06/21 13:34 Respiratory Rate 18 04/06/21 13:34 Blood Pressure 113/73 04/06/21 13:34 O2 Sat by Pulse Oximetry 99 04/06/21 13:34 Pain Scale Pain Intensity 0 - Physical Exam General Appearance: no apparent distress, alert, anxiety Eye Exam: PERRL/EOMI, eyes nml inspection Ears, Nose, Throat Exam: normal ENT inspection, pharyngeal erythema Neck Exam: normal inspection, non-tender, supple, full range of motion, No meningismus Respiratory Exam: normal breath sounds, lungs clear Cardiovascular Exam: regular rate/rhythm, normal heart sounds Gastrointestinal/Abdomen Exam: soft, normal bowel sounds, No tenderness Back Exam: normal inspection, normal range of motion Extremity Exam: normal inspection, normal range of motion Neurologic Exam: alert, oriented x 3, 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, 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 Skin Exam: normal color SpO2 Interpretation: normal SpO2: 99 O2 Delivery: Room Air Ordered Tests: Active Orders 24 hr Category Date Time Status Broomcorn Grader STAT Care 04/06/21 13:58 Completed IV Insertion STAT Care 04/06/21 13:57 Completed CHEST 1 VIEW (PORTABLE) Stat Exams 04/06/21 13:58 Completed BLOOD CULTURE Stat Lab 04/06/21 15:33 Received CBC W DIFF Stat Lab 04/06/21 15:32 Completed CMP Stat Lab 04/06/21 15:32 Completed Lactic Acid Stat Lab 04/06/21 14:18 Completed MAGNESIUM Stat Lab 04/06/21 15:32 Completed TROPONIN Q3H Lab 04/06/21 15:32 Completed Medication Summary Discontinued Medications Generic Name Dose Route Start Last Admin Trade Name Juan PRN Reason Stop Dose Admin Methylprednisolone Sodium 0 mg 04/06/21 13:57 04/06/21 14:13 Succinate 125 mg/ Sterile IV 04/06/21 13:58 125 mg Water 2 ml STAT ONE Administration Methylprednisolone Sodium Succinate Confirm 04/06/21 14:10 Methylprednis Sod Succ 125 Mg/2 Ml Vial Administered 04/06/21 14:11 Dose 125 mg .ROUTE .STK-MED ONE Lab/Rad Data: Laboratory Result Diagrams 04/06/21 15:32 04/06/21 15:32 Laboratory Results 04/06/21 04/06/21 04/06/21 Range/Units 15:32 15:32 15:32 WBC 5.3 (4.0-10.5) K/mm3 RBC 5.64 H (4.1-5.6) M/mm3 Hgb 15.5 (12.5-18.0) gm/dl Hct 47.7 (42-50) % MCV 84.6 (78-100) fl MCH 27.5 (26-32) pg MCHC 32.5 (32-36) g/dl RDW 15.5 H (11.5-14.0) % Plt Count 197 (150-450) K/mm3 MPV 10.7 (7.5-11.0) fl Gran % 47.7 (36.0-66.0) % Eos # (Auto) 0.01 (0-0.5) Absolute Lymphs (auto) 1.42 (1.0-4.6) Absolute Monos (auto) 1.34 H (0.0-1.3) Lymphocytes % 26.7 (24.0-44.0) % Monocytes % 25.2 H (0.0-12.0) % Eosinophils % 0.2 (0.00-5.0) % Basophils % 0.2 (0.0-0.4) % Absolute Granulocytes 2.54 (1.4-6.9) Basophils # 0.01 (0-0.4) Sodium 133 L (137-145) mmol/L Potassium 4.2 (3.5-5.1) mmol/L Chloride 101 (98-107) mmol/L Carbon Dioxide 22 (22-30) mmol/L Anion Gap 14.5 (5-15) MEQ/L BUN 9 (9-20) mg/dL Creatinine 0.87 (0.66-1.25) mg/dL Estimated GFR > 60.0 ML/MIN Glucose 105 (74-106) mg/dL Lactic Acid (0.4-2.0) Calcium 8.9 (8.4-10.2) mg/dL Magnesium 2.0 (1.6-2.3) mg/dL Total Bilirubin 0.50 (0.2-1.3) mg/dL AST 52 (17-59) U/L ALT 53 H (0-50) U/L Alkaline Phosphatase 88 (38-126) U/L Troponin I < 0.012 (0.000-0.034) ng/mL Serum Total Protein 6.9 (6.3-8.2) g/dL Albumin 4.0 (3.5-5.0) g/dL 04/06/21 Range/Units 14:18 WBC (4.0-10.5) K/mm3 RBC (4.1-5.6) M/mm3 Hgb (12.5-18.0) gm/dl Hct (42-50) % MCV (78-100) fl MCH (26-32) pg MCHC (32-36) g/dl RDW (11.5-14.0) % Plt Count (150-450) K/mm3 MPV (7.5-11.0) fl Gran % (36.0-66.0) % Eos # (Auto) (0-0.5) Absolute Lymphs (auto) (1.0-4.6) Absolute Monos (auto) (0.0-1.3) Lymphocytes % (24.0-44.0) % Monocytes % (0.0-12.0) % Eosinophils % (0.00-5.0) % Basophils % (0.0-0.4) % Absolute Granulocytes (1.4-6.9) Basophils # (0-0.4) Sodium (137-145) mmol/L Potassium (3.5-5.1) mmol/L Chloride (98-107) mmol/L Carbon Dioxide (22-30) mmol/L Anion Gap (5-15) MEQ/L BUN (9-20) mg/dL Creatinine (0.66-1.25) mg/dL Estimated GFR ML/MIN Glucose (74-106) mg/dL Lactic Acid 0.8 (0.4-2.0) Calcium (8.4-10.2) mg/dL Magnesium (1.6-2.3) mg/dL Total Bilirubin (0.2-1.3) mg/dL AST (17-59) U/L ALT (0-50) U/L Alkaline Phosphatase (38-126) U/L Troponin I (0.000-0.034) ng/mL Serum Total Protein (6.3-8.2) g/dL Albumin (3.5-5.0) g/dL - Progress Progress: improved Air Movement: good Progress Note: 04/06/21 he is given Solu-Medrol. X-rays negative, work-up otherwise grossly negative. Seems like he has a viral etiology symptoms could be Covid. Outpatient Covid test is obtained. No hypoxia, no signs of distress. Recommended supportive care and outpatient follow-up. Discussed signs symptoms of worsening needing return to ER which she seems understanding. Stable for discharge. Blood Culture(s) Obtained: Yes Antibiotics given: No Counseled pt/family regarding: lab results, diagnosis, need for follow-up, rad results, smoking cessation - Departure Departure Disposition: Home Clinical Impression: Acute viral syndrome Condition: Stable Critical Care Time: No Referrals: DOCTOR,NO FAMILY [NON-STAFF PHY W/O PRIVILEGES] - Follow up/PCP as directed BJ ROYAL MD [ACTIVE STAFF] - Follow up/PCP as directed (In 1 to 2 days for reevaluation) Instructions: Cough, Adult (DC), Viral Syndrome (DC) Additional Instructions: Take Tylenol as needed. Do not smoke. Drink plenty of fluids. Follow-up with primary care for reevaluation. Return to ER for worsening cough, shortness of breath, persistent high-grade fever chills etc. Use contact/droplet precautions until your COVID-19 result is back.
[2021-04-06] MEDS ORDERED: solu-MEDROL ONE (14:10)
[2021-04-06] MEDS: solu-MEDROL 125 MG, Sterile H2O 10 ml 2 ML IV ONE ×2 (14:13)
--- NOTE | 2021-04-06 14:28 | XRAY ---
Indication: Cough. Suspect Covid 19. Comparison: February 27, 2020. Portable chest remains hyperinflated and clear again with incidental right lung calcified granulomas. Heart not enlarged. Bony thorax intact. Impression: Nonacute hyperinflated chest with old granulomatous disease.
[2021-04-06 15:38] LABS: Absolute Neutrophil Ct (ANC) 2.54 (1.4-6.9); BASOPHIL % 0.2 % (0.0-0.4); Basophil (Absolute #) 0.01 (0-0.4); Eosinophil % 0.2 % (0.00-5.0); Eosinophil (Absolute #) 0.01 (0-0.5); Hematocrit 47.7 % (42-50); Hemoglobin 15.5 gm/dl (12.5-18.0); Lymphocyte (Absolute #) 1.42 (1.0-4.6); Lymphocytes % 26.7 % (24.0-44.0); Mean Cell Volume 84.6 fl (78-100); Mean Corpuscular Hemoglobin 27.5 pg (26-32); Mean Corpuscular Hgb Concent. 32.5 g/dl (32-36); Mean Platelet Volume 10.7 fl (7.5-11.0); Monocyte (Absolute #) 1.34 (0.0-1.3); Monocytes % 25.2 % (0.0-12.0); Neutrophil % 47.7 % (36.0-66.0); Platelet Count 197 K/mm3 (150-450); Red Blood Count 5.64 M/mm3 (4.1-5.6); Red Cell Distribution Width 15.5 % (11.5-14.0); White Blood Count 5.3 K/mm3 (4.0-10.5)
[2021-04-06 15:52] LABS: ALKALINE PHOSPHATASE 88 U/L (38-126); ANION GAP 14.5 MEQ/L (5-15); BLOOD UREA NITROGEN 9 mg/dL (9-20); CHLORIDE 101 mmol/L (98-107); Calcium 8.9 mg/dL (8.4-10.2); Carbon Dioxide 22 mmol/L (22-30); Creatinine 1 0.87 mg/dL (0.66-1.25); EST GLOMERULAR FILTRATION RATE > 60.0 ML/MIN; Glucose 105 mg/dL (74-106); Potassium 4.2 mmol/L (3.5-5.1); SGOT/AST 52 U/L (17-59); SGPT/ALT 53 U/L (0-50); SODIUM 133 mmol/L (137-145); Total Protein 6.9 g/dL (6.3-8.2)
[2021-04-06 16:56] VITALS: BP 113/73; PULSE 68
[2021-04-06 22:18] VITALS: O2SAT 99
== END 2021-04-06 17:04 | disposition home or self-care (01) ==
LOC: ED 13:30
DX: B34.9 Viral infection, unspecified (principal); R05.9 Cough, unspecified; R09.81 Nasal congestion; J02.9 Acute pharyngitis, unspecified; M79.10 Myalgia, unspecified site; R42 Dizziness and giddiness; Z20.822 Contact with and (suspected) exposure to COVID-19; Z72.0 Tobacco use; F19.11 Other psychoactive substance abuse, in remission
CPT/HCPCS: 36000; 36415; 71045; 80053; 83605; 83735; 84484; 85025; 87040; 93041; 96374; 99284; U0003; J2930